=== PATIENT | female | born 1990 | race Caucasian/White ===

== ENCOUNTER 2017-06-19 14:05 | Emergency (ER) | payer MEDICAID, SELFPAY | END 2017-06-19 15:49 | disposition home or self-care (01) | PROVIDERS: Emergency Provider Nurse Practitioner; Family Provider Physician Assistant; Visit Provider Nurse Practitioner | DX: J06.9 Acute upper respiratory infection, unspecified (principal) | CPT/HCPCS: 87804; 99201 ==

== ENCOUNTER → 2017-08-18 14:48 | Outpatient (REF) | payer MEDICAID, SELFPAY ==
[2017-08-18 21:06] LABS: Amphetamine/Metha Screen,Urine Negative ng/mL (<1000); Barbiturates Screen,Urine Negative ng/mL (<200); Benzodiazepines Screen,Urine Positive ng/mL (200); Cannabinoid Screen,Urine Positive ng/mL (<50); Cocaine Screen,Urine Negative ng/g (<300); Methadone Screen,Urine Negative ng/mL (<300); Opiate Screen,Urine Negative ng/mL (<300); Phencyclidine Screen,Urine Negative ng/mL (<25)
== END ==
LOC: LAB 14:48
PROVIDERS: Visit Provider Physician Assistant
DX: Z79.899 Other long term (current) drug therapy (principal)
CPT/HCPCS: 80305

== ENCOUNTER 2017-09-02 12:45 | Emergency (ER) | payer MEDICAID, SELFPAY ==
[2017-09-02 13:14] VITALS: BP 123/80; PULSE 94; RESP 18; TEMP 36.6; O2SAT 100; BMI 19.5
--- NOTE | 2017-09-02 13:32 | HMH.EDUTC ---
[facility] [place] Disposition Clinical Impression: Viral upper respiratory infection Disposition: Home, Self-Care Condition on Discharge: Good Instructions: DI for Viral Upper Respiratory Infection -- Adult, DI for Cough -- Adult Additional Instructions: * Monitor Temp. Tylenol and/or Ibuprofen as needed. ER if fever is no less than 101 despite alternating Tylenol and Ibuprofen * Encourage fluids, water, Gatorade, powerade, pedialyte if infant/toddler/or child * Warm salt water gargles for throat irritation *Warm fluids *Sore throat lozenges *Sleep elevated *humidifier or vaporizer Lots of rest Increase fluids, water, Gatorade, powerade *Flonase 2 sprays each nostril daily but may take 2-3 days to notice improvement with it *Bromfed may cause drowsiness. Know how it effect you or your child. Before driving, caring for small children or sending your child to school *Your throat swab was sent to lab for culture. Those results area typically sent to your primary care physician. Be sure to follow up in 2-3 days if no improvement so they can review those results and treat if necessary If you dont have primary care I recommend you get one, but in the mean time you will have to return to a walk in clinic Follow up IMMEDIATELY for new or worsening of symptoms OR no noticeable improvement over the next 48-72 hours. 911 immediately for any life threatening symptoms such as chest pain or difficulty breathing Prescriptions: Brompheniramine/Pseudoephed/Dm [Bromfed DM Cough Syrup 5mL] 10 ml PO Q4HP PRN #350 ml PRN Reason: Cough Fluticasone Propionate [Flonase 50mcg nasal spray 16gm] 2 spr NS DAILY #1 bottle Referrals: Nayeli Aguila PA [Primary Care Provider] - Forms: Work/School Release Time of Disposition: 13:37 Medical Decision Making - Medical Records Medical records reviewed: Yes: I reviewed the patient's medical records. - Josh Inquiry Pt receiving controlled substance: No Josh was queried for this patient: No Vital Signs: 09/02/17 13:14 Temperature 97.9 F Temperature Source Temporal Artery Scan Pulse Rate [Right] 94 H Respiratory Rate 18 Blood Pressure [Right Arm] 123/80 Blood Pressure Mean [Right Arm] 94 Blood Pressure Source [Right Arm] Automatic Cuff Blood Pressure Position [Right Arm] Sitting 02 Sat by Pulse Oximetry 100 Oxygen Delivery Method Room Air [facility] [place] HPI - General Stated complaint: cough runny nose fever Time Seen by Provider: 09/02/17 13:20 Mode of Arrival: Ambulatory Source of Information: Patient Limitations: No Limitations Description of Symptoms (Recalled from Triage Doc. by RN): COUGH, CONGESTION, FEVER HEENT Symptoms (Recalled from RN notes): Yes Resp Symptoms (Recalled from RN notes): No Skin Symptoms (Recalled from RN notes): No MS Symptoms (Recalled from RN notes): No Functional Status (Recalled from RN notes): N - History of Present Illness Provider Complaint: Patient state that she has been having cough, nasal congestion and runny nose sore throat and over all not feeling well since yesterday State that children just recently started daycare and thinks they may have picked up something from there State that she has been laying around and today she thinks she may have had a little fever this morning so she came to get checked - Related Data Home Medications Medication Instructions Recorded Confirmed buprenorphine 8 mg-naloxone 2 mg 10 mg BUCCAL BID each 08/18/17 sublingual film gabapentin 400 mg capsule 400 mg PO TID 08/18/17 Previous Rx's Medication Instructions Recorded valacyclovir 1 gram tablet 1,000 mg PO BID 30 Days #60 tab 08/17/17 buspirone 5 mg tablet 5 mg PO BID 30 Days #60 tab 08/18/17 lamotrigine 25 mg tablet 25 mg PO .COMPLEX 30 Days #60 tab 08/18/17 Brompheniramine/Pseudoephed/Dm 10 ml PO Q4HP PRN #350 ml 09/02/17 [Bromfed DM Cough Syrup 5mL] Fluticasone Propionate [Flonase 2 spr NS DAILY #1 bottle 09/02/17 50mcg nasal spray 16gm] Allergi
--- NOTE | 2017-09-02 13:35 | ED_ITS ---
[facility] [place] Disposition Clinical Impression: Viral upper respiratory infection Disposition: Home, Self-Care Condition on Discharge: Good Instructions: DI for Viral Upper Respiratory Infection -- Adult, DI for Cough - - Adult Additional Instructions: * Monitor Temp. Tylenol and/or Ibuprofen as needed. ER if fever is no less than 101 despite alternating Tylenol and Ibuprofen * Encourage fluids, water, Gatorade, powerade, pedialyte if /toddler/or child * Warm salt water gargles for throat irritation *Warm fluids *Sore throat lozenges *Sleep elevated *humidifier or vaporizer Lots of rest Increase fluids, water, Gatorade, powerade *Flonase 2 sprays each nostril daily but may take 2-3 days to notice improvement with it *Bromfed may cause drowsiness. Know how it effect you or your child. Before driving, caring for small children or sending your child to school *Your throat swab was sent to lab for culture. Those results area typically sent to your primary care physician. Be sure to follow up in 2-3 days if no improvement so they can review those results and treat if necessary If you don? t have primary care I recommend you get one, but in the mean time you will have to return to a walk in clinic Follow up IMMEDIATELY for new or worsening of symptoms OR no noticeable improvement over the next 48-72 hours. 911 immediately for any life threatening symptoms such as chest pain or difficulty breathing Prescriptions: Brompheniramine/Pseudoephed/Dm [Bromfed DM Cough Syrup 5mL] 10 ml PO Q4HP PRN # 350 ml PRN Reason: Cough Fluticasone Propionate [Flonase 50mcg nasal spray 16gm] 2 spr NS DAILY #1 bottle Referrals: Nayeli Aguila PA [Primary Care Provider] - Forms: Work/School Release Time of Disposition: 13:37 Medical Decision Making - Medical Records Medical records reviewed: Yes: I reviewed the patient's medical records. - Josh Inquiry Pt receiving controlled substance: No Josh was queried for this patient: No Vital Signs: 09/02/17 13:14 Temperature 97.9 F Temperature Source Temporal Artery Scan Pulse Rate [Right] 94 H Respiratory Rate 18 Blood Pressure [Right Arm] 123/80 Blood Pressure Mean [Right Arm] 94 Blood Pressure Source [Right Arm] Automatic Cuff Blood Pressure Position [Right Arm] Sitting 02 Sat by Pulse Oximetry 100 Oxygen Delivery Method Room Air [facility] [place] HPI - General Stated complaint: cough runny nose fever Time Seen by Provider: 09/02/17 13:20 Mode of Arrival: Ambulatory Source of Information: Patient Limitations: No Limitations Description of Symptoms (Recalled from Triage Doc. by RN): COUGH, CONGESTION, FEVER HEENT Symptoms (Recalled from RN notes): Yes Resp Symptoms (Recalled from RN notes): No Skin Symptoms (Recalled from RN notes): No MS Symptoms (Recalled from RN notes): No Functional Status (Recalled from RN notes): N - History of Present Illness Provider Complaint: Patient state that she has been having cough, nasal congestion and runny nose sore throat and over all not feeling well since yesterday State that children just recently started daycare and thinks they may have picked up something from there State that she has been laying around and today she thinks she may have had a little fever this morning so she came to get checked - Related Data Home Medications Medication Instructions Recorded Confirmed buprenorphine 8 mg-naloxone 2 mg 10 mg BUCCAL BID each 08/18/17 sublingual film
[2017-09-02 13:45] VITALS: BP 123/80; PULSE 94; RESP 18; TEMP 36.6
[2017-09-02 14:04] LABS: UTC Influenza A Antigen Negative (Negative); UTC Influenza B Antigen Negative (Negative); UTC Strep Screen (Rapid) Negative (Negative)
== END 2017-09-02 13:55 | disposition home or self-care (01) ==
PROVIDERS: Emergency Provider Nurse Practitioner; Family Provider Physician Assistant; PCP Physician Assistant
DX: J06.9 Acute upper respiratory infection, unspecified (principal); F41.8 Other specified anxiety disorders; F17.210 Nicotine dependence, cigarettes, uncomplicated
CPT/HCPCS: 87804; 87880; 99202

== ENCOUNTER 2017-09-09 09:58 | Emergency (ER) | payer MEDICAID, SELFPAY ==
[2017-09-09 10:07] VITALS: BP 108/64; PULSE 84; RESP 22; TEMP 36.9; O2SAT 98; BMI 18.8
--- NOTE | 2017-09-09 10:12 | HMH.EDUTC ---
[facility] [place] Disposition Clinical Impression: Nausea and vomiting Qualifiers: Vomiting type: unspecified Vomiting Intractability: non-intractable Qualified Code(s): R11.2 - Nausea with vomiting, unspecified Disposition: Home, Self-Care Condition on Discharge: Good Instructions: DI for Viral Gastroenteritis -- Adult Additional Instructions: * Monitor Temp. Seek treatment if fever develops. * Follow up immediately for new or worsening symptoms OR no noticeable improvement over the next 48 hours. * Increase fluids. Water, gatorade, powerade, juice OR pedialyte with limited formula/dairy in children. * No food is ok as long as you or your child is drinking. Once ready to eat, start bland. bananas, rice, applesauce, toast * Contagious until no diarrhea, vomiting, fever x 24 hours without medication * Avoid anti-diarrheals unless told otherwise. Best to let the virus run its course. * zofran as needed for nausea or vomiting. This is what we gave you in clinic so next dose in 8 hours. Prescriptions: Ondansetron [Zofran 4mg ODT] 4 mg PO Q8H PRN #9 tab.rapdis PRN Reason: Vomiting Referrals: Nayeli Aguila PA [Primary Care Provider] - (Follow up IMMEDIATELY for new or worsening symptoms OR no noticeable improvement over the next 48 hours.) Forms: Work/School Release Time of Disposition: 10:46 Medical Decision Making - Josh Inquiry Pt receiving controlled substance: No Vital Signs: 09/09/17 10:07 Temperature 98.5 F Temperature Source Temporal Artery Scan Pulse Rate [Brachial] 84 Respiratory Rate 22 Blood Pressure [Right Arm] 108/64 Blood Pressure Mean [Right Arm] 78 Blood Pressure Position [Right Arm] Standing 02 Sat by Pulse Oximetry 98 Oxygen Delivery Method Room Air - Lab Data Lab results reviewed: Yes: I reviewed the patient's lab results. Lab Results 09/09/17 10:08: Influenza Type A Ag Negative, Influenza Type B Ag Negative 09/09/17 10:12: Urine Color Dark yellow, Urine Appearance Turbid, Urine pH 7.0, Ur Specific [place] 1.020, Urine Protein 2+, Urine Glucose (UA) Negative, Urine Ketones Negative, Urine Blood Negative, Urine Nitrate Negative, Urine Bilirubin 1+ A, Urine Urobilinogen 0.2, Ur Leukocyte Esterase Negative Orders (Tests/Meds): ED MEDICATIONS Discontinued Medications Generic Name Dose Route Start Last Admin Trade Name Elva PRN Reason Stop Dose Admin Ondansetron HCl 4 mg 09/09/17 10:13 09/09/17 10:15 Zofran 4mg Odt SL 09/09/17 10:14 4 mg ONCE ONE Administration - Reevaluation(s) Time: 10:40 Reevaluation #1: Pt laying on exam table. Chills resolved. States she is feeling better from nausea/vomiting standpoint. Tolerated her gatorade. No emesis since arrival. Rvwd lab results and POC. [facility] [place] HPI - General Stated complaint: Nausea; vomiting; chills/aches Time Seen by Provider: 09/09/17 10:08 Mode of Arrival: Ambulatory Source of Information: Patient Limitations: No Limitations Description of Symptoms (Recalled from Triage Doc. by RN): PT STATES SHES HAD N/V ACHES AND CHILLS THAT BEGAN THIS AM HEENT Symptoms (Recalled from RN notes): No Resp Symptoms (Recalled from RN notes): No Skin Symptoms (Recalled from RN notes): No MS Symptoms (Recalled from RN notes): No Functional Status (Recalled from RN notes): NA - History of Present Illness Provider Complaint: c/o being woke up this morning w/ nausea, vomiting, aches all over, chills. No known sick contacts. Has vomited approx 4-5 times. no diarrhea. No treatment before arrival. I am here hoping to get a prescription for the nausea . No abdominal pain. - Related Data Home Medications Medication Instructions Recorded Confirmed Buspirone HCl [Buspar 5mg tablet] 5 mg PO BID 09/09/17 09/09/17 Valacyclovir HCl [Valacyclovir] 1,000 mg PO BID 09/09/17 09/09/17 lamoTRIgine [Lamotrigine] 25 mg PO .COMPLEX 09/09/17 09/09/17 Previous Rx's Medication Instructions Recorded Ondansetron [Zofran 4mg ODT
--- NOTE | 2017-09-09 10:15 | ED_ITS ---
[facility] [place] Disposition Clinical Impression: Nausea and vomiting Qualifiers: Vomiting type: unspecified Vomiting Intractability: non-intractable Qualified Code(s): R11.2 - Nausea with vomiting, unspecified Disposition: Home, Self-Care Condition on Discharge: Good Instructions: DI for Viral Gastroenteritis -- Adult Additional Instructions: * Monitor Temp. Seek treatment if fever develops. * Follow up immediately for new or worsening symptoms OR no noticeable improvement over the next 48 hours. * Increase fluids. Water, gatorade, powerade, juice OR pedialyte with limited formula/dairy in children. * No food is ok as long as you or your child is drinking. Once ready to eat, start bland. bananas, rice, applesauce, toast * Contagious until no diarrhea, vomiting, fever x 24 hours without medication * Avoid anti-diarrheals unless told otherwise. Best to let the virus run its course. * zofran as needed for nausea or vomiting. This is what we gave you in clinic so next dose in 8 hours. Prescriptions: Ondansetron [Zofran 4mg ODT] 4 mg PO Q8H PRN #9 tab.rapdis PRN Reason: Vomiting Referrals: Nayeli Aguila PA [Primary Care Provider] - (Follow up IMMEDIATELY for new or worsening symptoms OR no noticeable improvement over the next 48 hours.) Forms: Work/School Release Time of Disposition: 10:46 Medical Decision Making - Josh Inquiry Pt receiving controlled substance: No Vital Signs: 09/09/17 10:07 Temperature 98.5 F Temperature Source Temporal Artery Scan Pulse Rate [Brachial] 84 Respiratory Rate 22 Blood Pressure [Right Arm] 108/64 Blood Pressure Mean [Right Arm] 78 Blood Pressure Position [Right Arm] Standing 02 Sat by Pulse Oximetry 98 Oxygen Delivery Method Room Air - Lab Data Lab results reviewed: Yes: I reviewed the patient's lab results. Lab Results 09/09/17 10:08: Influenza Type A Ag Negative, Influenza Type B Ag Negative 09/09/17 10:12: Urine Color Dark yellow, Urine Appearance Turbid, Urine pH 7.0, Ur Specific [place] 1.020, Urine Protein 2+, Urine Glucose (UA) Negative, Urine Ketones Negative, Urine Blood Negative, Urine Nitrate Negative, Urine Bilirubin 1+ A, Urine Urobilinogen 0.2, Ur Leukocyte Esterase Negative Orders (Tests/Meds): ED MEDICATIONS Discontinued Medications Generic Name Dose Route Start Last Admin Trade Name Elva PRN Reason Stop Dose Admin Ondansetron HCl 4 mg 09/09/17 10:13 09/09/17 10:15 Zofran 4mg Odt SL 09/09/17 10:14 4 mg ONCE ONE Administration - Reevaluation(s) Time: 10:40 Reevaluation #1: Pt laying on exam table. Chills resolved. States she is feeling better from nausea/vomiting standpoint. Tolerated her gatorade. No emesis since arrival. Rvwd lab results and POC. [facility] [place] HPI - General Stated complaint: Nausea; vomiting; chills/aches Time Seen by Provider: 09/09/17 10:08 Mode of Arrival: Ambulatory Source of Information: Patient Limitations: No Limitations Description of Symptoms (Recalled from Triage Doc. by RN): PT STATES SHES HAD N/ V ACHES AND CHILLS THAT BEGAN THIS AM HEENT Symptoms (Recalled from RN notes): No Resp Symptoms (Recalled from RN notes): No Skin Symptoms (Recalled from RN notes): No MS Symptoms (Recalled from RN notes): No Functional Status (Recalled from RN notes): NA - History of Present Illness Provider Complaint: c/o being woke up this morning w/ nausea, vomiting, ache
[2017-09-09 10:19] LABS: Apearance,Urine Turbid (Clear); Color,Urine Dark Yellow (Yellow)
[2017-09-09 10:20] LABS: Bilirubin,Urine 1+ (Negative); Blood, Urine Negative (Negative); Glucose,Urine (UA) Negative (Negative); Ketones,Urine Negative (Negative); Protein,Urine 2+ (Negative); UTC Leukocyte Esterase,Urine Negative (Negative); Urobilinogen,Urine 0.2 EU/dl (0.2)
[2017-09-09 10:21] LABS: UTC Influenza A Antigen Negative (Negative); UTC Influenza B Antigen Negative (Negative)
[2017-09-09 10:21] LABS: UTC Nitrate,Urine Negative (Negative)
[2017-09-09 10:43] VITALS: BP 108/64; PULSE 84; RESP 22; TEMP 36.9
== END 2017-09-09 10:47 | disposition home or self-care (01) ==
PROVIDERS: Emergency Provider Nurse Practitioner Family; Family Provider Physician Assistant; PCP Physician Assistant
DX: R11.2 Nausea with vomiting, unspecified (principal); F41.8 Other specified anxiety disorders; F17.210 Nicotine dependence, cigarettes, uncomplicated
CPT/HCPCS: 81003; 87804; 99202

== ENCOUNTER → 2018-06-29 14:32 | Outpatient (CLI) | payer MEDICAID, SELFPAY ==
[2018-06-29 15:21] LABS: Amphetamine/Metha Screen,Urine Positive ng/mL (<1000); Barbiturates Screen,Urine Negative ng/mL (<200); Benzodiazepines Screen,Urine Negative ng/mL (<200); Cannabinoid Screen,Urine Negative ng/mL (<50); Cocaine Screen,Urine Negative ng/mL (<300); Methadone Screen,Urine Negative ng/mL (<300); Opiate Screen,Urine Negative ng/mL (<300); Phencyclidine Screen,Urine Negative ng/mL (<25)
[2018-07-03 15:13] LABS: Amphetamines Negative (Cutoff=500)
== END ==
PROVIDERS: Visit Provider Physician Assistant
DX: Z79.899 Other long term (current) drug therapy (principal)
CPT/HCPCS: 80305; 80324

== ENCOUNTER 2024-02-15 10:25 | Outpatient (CLI) | payer MEDICAID, SELFPAY ==
[2024-02-15 18:37] LABS: Basophils # 0.1 K/mm3 (0-0.2); Basophils % 1.2 % (0.1-2.0); Eosinophils # 0.2 K/mm3 (0.0-0.4); Eosinophils % 4.1 % (0.1-12.0); Hematocrit 40.4 % (37.0-47.0); Hemoglobin 13.2 g/dL (12.2-16.2); Lymphocytes # 2.2 K/mm3 (0.7-4.5); Lymphocytes % 40.6 % (10-50); Mean Corpuscular HGB Conc 32.7 g/dL (31.8-35.4); Mean Corpuscular Volume 98.1 fl (81-99); Mean Platelet Volume 8.7 fl (7.4-10.4); Monocytes # 0.3 K/mm3 (0.1-1.0); Monocytes % 6.3 % (1.7-9.3); Neutrophils # 2.6 K/mm3 (1.8-7.8); Neutrophils % 47.8 % (37.0-80.0); Platelet Count 371 K/mm3 (142-424); Red Blood Count 4.12 M/mm3 (4.20-5.40); Red Cell Distribution Width 13.4 % (11.5-17.5); White Blood Count 5.4 K/mm3 (4.8-10.8)
[2024-02-15 19:39] LABS: Alanine Aminotransferase 25 U/L (12-78); Albumin Level 4.4 g/dl (3.5-5.0); Albumin/Globulin Ratio 1.4 (1.1-1.8); Alkaline Phosphatase 51 U/L (38-126); Anion Gap 10.1 mEq/L (5-15); Aspartate Amino Transferase 39 U/L (14-36); Bilirubin,Total 0.4 mg/dl (0.2-1.3); Blood Urea Nitrogen 9 mg/dl (7-17); Calcium 9.7 mg/dl (8.4-10.2); Carbon Dioxide 25 mmol/L (22.0-30.0); Chloride 106 mmol/L (98-107); Chol/HDL Ratio 4.3 (1-3.5); Cholesterol 219 mg/dl (140-200); Estimated Glomerular Filt Rate 96 ml/min (>60); GFR (African American) 117 ML/MIN (>60); Globulin 3.1 g/dL (1.3-3.2); Glucose 96 mg/dl (74-100); HDL Cholesterol 51 mg/dl (40-60); Potassium 4.1 mmoL/L (3.5-5.1); Sodium 137 mmol/L (136-145); Total Protein,Serum 7.5 g/dl (6.3-8.2); Triglycerides 116 mg/dl (30-150); VLDL Cholesterol 23 mg/dL (0-40)
[2024-02-15 19:57] LABS: 25-OH Vitamin D, Total 34.1 ng/mL (30-100)
[2024-02-15 20:28] LABS: Vitamin B12 675 pg/mL (239-931)
[2024-02-15 21:26] LABS: Iron 93 ug/dL (37-170)
[2024-02-15 21:35] LABS: Total Iron Binding Capacity 301 ug/dL (265-497)
[2024-02-15 23:42] LABS: Free Thyroxine Index 1.9 ug/dL (5.93-13.13); T4 (Thyroxine) 6.8 ug/dl (5.53-11.0); Triiodothryronine (T3) Uptake 28 % (23.5-40.5)
[2024-02-15 23:56] LABS: Thyroid Stimulating Hormone 4.63 uIU/mL (0.465-4.68)
== END 2024-02-15 23:59 | disposition home or self-care (01) ==
LOC: LAB.DROPOF 02-16 12:22
PROVIDERS: PCP Nurse Practitioner Family; Visit Provider Nurse Practitioner Family
DX: R53.83 Other fatigue (principal); E78.5 Hyperlipidemia, unspecified
CPT/HCPCS: 80050; 80053; 80061; 82306; 82607; 83540; 83550; 84436; 84443; 84479; 85025